=== PATIENT | male | born 1950 | race Caucasian/White ===

== ENCOUNTER → 2017-03-18 | Outpatient (CLI) | payer MEDICAID | LOC: RT 10:28 | PROVIDERS: ATTEND Psychiatry & Neurology Neurology | DX: G40.909 Epilepsy, unspecified, not intractable, without status epilepticus (principal) | CPT/HCPCS: 95819 ==

== ENCOUNTER → 2017-11-11 | Outpatient (CLI) | payer OTHER, MEDICAID ==
--- NOTE | 2017-11-11 10:38 | MRI ---
STUDY: MRI OF THE BRAIN WITHOUT GADOLINIUM HISTORY: Dizziness and giddiness. History of seizures. Technique: Multiplanar multi-sequence MRI of the brain was obtained utilizing standard departmental p rotocol. Sagittal and axial T1, axial T2, FLAIR, diffusion (DWI/ADC), GRE, and coronal T2 images thro [facility] the brain were performed. Comparison: None. Findings: The sulci, cisterns and ventricles are prominent consistent with diffuse volume loss. There are scatt ered foci of T2 prolongation in the periventricular and subcortical white matter of both hemispheres. This is a nonspecific finding which likely represents microangiopathic change in a patient of this a ge. There is no evidence of acute territorial infarction, hemorrhage, mass, mass effect, or midline shift . There are no abnormal intra-axial or extra-axial fluid collections. The major intracranial vascular flow voids appear intact. The right vertebral artery appears dominant. There is bilateral aphakia. IMPRESSION: 1. No evidence of acute intracranial abnormality. 2. Nonspecific white matter change and volume loss. Reported By:
--- NOTE | 2017-11-11 10:51 | MRI ---
STUDY: MRA OF THE BRAIN HISTORY: Dizziness and giddiness. History of seizure activity. Comparison: Brain MRI from November 11, 2017. Technique: 3D [id number] imaging of the intracranial circulation was performed. Findings: 3D [id number] MRA examination shows normal flow related enhancement in the major intracranial art eries. There is no evidence of hemodynamically significant stenosis or aneurysm. There is a normal an terior communicating artery. There are bilateral posterior communicating arteries. 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 The right vertebral artery is dominant. IMPRESSION: 1. Normal MRA of the brain, with anatomic variation as described. Reported By:
== END ==
LOC: RAD 08:29
PROVIDERS: ATTEND Psychiatry & Neurology Neurology
DX: R42 Dizziness and giddiness (principal)
CPT/HCPCS: 70544; 70551